=== PATIENT | male | born 1980 | race Caucasian/White ===

== ENCOUNTER 2018-03-23 13:21 | Emergency (ER) | payer OTHER ==
[~2018-03-23] VITALS: Ht 188 cm; Wt 81.6 kg
[~2018-03-23 13:21] MED LIST: PROAIR HFA8.5 GM INH; ZITHROMAX250 M2 PO
[2018-03-23 13:40] VITALS: BP 138/79
--- NOTE | 2018-03-23 14:49 | RADIOLOGY REPORT ---
EXAMINATION: XR LUMBOSACRAL SPINE CLINICAL INFORMATION: Midline tenderness to the lumbar spine. Evaluate for fracture. COMPARISON: None TECHNIQUE: Lumbosacral spine 4 views. FINDINGS: Minimal right convex scoliosis lumbar spine. Lumbar vertebral bodies are normal in height and alignment. Intervertebral disc spaces are preserved. Tiny degenerative osteophytes L5. No radiographic evidence of acute fracture or subluxation. Limited views of the sacrum are unremarkable. IMPRESSION: Minimal degenerative changes of the lumbar spine without radiographic evidence of acute fracture or subluxation.
[2018-03-23] MEDS ORDERED: MEDROL4 M2 PO (15:06)
[2018-03-23] MEDS ORDERED: IBUPROFEN800 M1 PO (15:06)
[2018-03-23] MEDS ORDERED: CYCLOBENZAPRINE10 M1 PO (15:06)
--- NOTE | 2018-03-23 15:07 | ED NECK/BACK PAIN COMPLAINT ---
History of Present Illness General Chief Complaint: Low Back Pain/Injury Stated Complaint: LOW BACK PAIN Source: patient Exam Limitations: no limitations Vital Signs & Intake/Output Vital Signs & Intake/Output Vital Signs Date Time Temp Pulse Resp B/P B/P Pulse O2 O2 Flow FiO2 Mean Ox Delivery Rate 03/23 1340 98.1 78 18 138/79 98 Room Air Allergies Coded Allergies: quetiapine (From SEROQUEL) (HEART ARRHYTHMIA 03/23/18) Reconcile Medications Cyclobenzaprine HCl 10 MG TABLET 1 TAB PO TID SPASMS Ibuprofen 800 MG TABLET 1 TAB PO TID PAIN Methylprednisolone. 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 PT STATES HE THOUGHT THE PAIN WOULD GO AWAY, +ROM OF BILATERAL LEGS. PT ABLE TO AMBUALTE. VSS. Triage Nurses Notes Reviewed? yes Onset: Abrupt Duration: day(s):, constant, continues in ED Timing: recent history Location: lumbar spine HPI: 37-year-old male comes into the emergency room for left lower back pain has been going on for the past few days. 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 Patient reports she's had pain in his left lower back radiating down to his left knee. Denies any urinary bowel dysfunction or weakness. Pain is worse with range of motion. Denies any other associated symptoms. (Jacoby Mallory) Past History Travel History Traveled to [place] past 21 day No Medical History Any Pertinent Medical History? 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 No (Jacoby Mallory) Review of Systems Review of Systems Constitutional: Reports: no symptoms. Eyes: Reports: no symptoms. Ears, Nose, Throat, Mouth: Reports: no symptoms. Respiratory: Reports: no symptoms. Cardiovascular: Reports: no symptoms. Gastrointestinal/Abdominal: Reports: no symptoms. Musculoskeletal: Reports: see HPI. Skin: Reports: no symptoms. Neurological/Psychological: Reports: no symptoms. All Other Systems: Reviewed and Negative (Jacoby Mallory) Physical Exam Physical Exam General Appearance: well developed/nourished, mild distress Head: atraumatic Eyes: Bilateral: normal appearance. Ears, Nose, Throat, Mouth: hearing grossly normal, moist mucous membrane Neck: normal inspection Respiratory: no respiratory distress Back: normal inspection, tenderness left lower paraspinal region Extremities: normal range of motion Motor: Deficit L4 Right: No Deficit L4 Left: No Deficit L5 Right: No Deficit L5 Left: No Deficit S1 Right: No Deficit S1 Right: No DTR: Patellar: 2: L4 Right, L4 Left. Neurologic/Psych: awake, alert, oriented x 3, normal mood/affect Skin: intact, normal color, warm/dry Core Measures CVA/TIA Diagnosis: No (Jacoby Mallory) Progress Differential Diagnosis: cauda equina syn, herniated disc, myofascial strain, sciatica Plan of Care: 03/23/2018 4:15:29 PM Patient's pain is all reproducible and lower back. Pain is worse with range of motion. No evidence of radiculopathy on exam. No urinary bowel dysfunction. No genital numbness. No weakness in the lower extremity. Normal dorsiflexion of great toe. Gross sensation intact. No saddle paresthesia. Considered things like cauda equina have a do not feel that patient's symptoms at this point in time are consistent with this diagnosis. . Patient has no other symptoms that could be attributing to back pain. No abdominal pain, shortness of breath, chest pain. Patient is to follow-up with primary care doctor for recheck. If symptoms persist patient should be considered for an MRI of the lower back. Patient is to return immediately if any nausea vomiting, fever, weakness in the legs, urinary bowel dysfunction, abdominal pain, chest pain, shortness of breath. No weight loss. No night sweats. Pain is consistent with musculoskeletal pain due to the patient's symptoms mentioned above. (Jacoby Mallory) Departure Departure Disposition: HOME OR SELF CARE Condition: Stable Clinical Impression Primary Impression: Sciatica Referrals: Patient Has No Primary Care Dr (PCP/Family) Additional Instructions: Take ibuprofen, Flexeril, and Medrol Dosepak as prescribed. Avoid heavy lifting. Return if any urinary bowel dysfunction or weakness in her lower legs or any other concerns worsening symptoms. Please go over all results of today's visit with your primary care doctor. Contact your primary care doctor to let them know you were here in the emergency room. There may be nonspecific findings which may not be related to your visit today here in the emergency room but may require further evaluation and chronic monitoring by your primary care doctor. If you had a laceration today the chance of foreign body always remains. You should follow-up with your primary care doctor for recheck in 3-5 days for a wound check. If you had an x-ray done there is a chance that a fracture could have been missed on initial read and you should follow-up with your primary care doctor for repeat x-rays if symptoms persist. If your blood pressure was elevated here in the emergency room please have rechecked by [facility] primary care doctor within the next 48. If you were prescribed a narcotic here in the emergency room or any type of controlled substances you're not allowed to drive while taking this medication or operate any type of heavy machinery. Narcotics can make you feel lightheaded dizziness nausea and can cause constipation. You may need to greens picker a stool softener. Thank you for choosing emergency room. Please return to the emergency room immediately if you have any other concerns worsening of symptoms. Departure Forms: Customer Survey General Discharge Information Prescriptions: Current Visit Scripts Ibuprofen 1 TAB PO TID #60 TAB Cyclobenzaprine HCl 1 TAB PO TID #30 TAB Methylprednisolone. (Medrol) 1 DP PO AD #1 DP 6 on day 1 then reduce by one tablet daily until gone (Jacoby Mallory) PA/SOLE ROUGHER Co-Sign Statement Statement: ED Attending supervision documentation- [] I saw and evaluated the patient. I have also reviewed all the pertinent lab results and diagnostic results. I agree with the findings and the plan of care as documented in the PA's/SOLE ROUGHER's documentation. [x] I have reviewed the ED Record and agree with the PA's/SOLE ROUGHER's documentation. [] Additions or exceptions (if any) to the PAs/SOLE ROUGHER's note and plan are summarized below: [] (Kanika REESE,[facility])
== END 2018-03-23 15:16 ==
LOC: ERH 13:21
DX: M54.42 Lumbago with sciatica, left side (principal)
CPT/HCPCS: 72110; 96372; J1885